=== PATIENT | male | born 1975 | race Two or more races ===

== ENCOUNTER 2016-12-13 01:38 | Emergency (ER) | payer MEDICARE, OTHER ==
[~2016-12-13] VITALS: Ht 160 cm; Wt 72.6 kg
[2016-12-13 01:49] VITALS: BP 128/60
[2016-12-13] MEDS ORDERED: methylPREDNISolone SOD SUCC 125 MG/2 ML VL IM ONE (02:45)
[2016-12-13] MEDS ORDERED: diphenhdrAMINE HCL 50 MG/1 ML VL IM ONE (02:45)
== END 2016-12-13 03:00 | disposition home or self-care (01) ==
LOC: EDBD 01:38 → ER 01:38
DX: T78.40XA Allergy, unspecified, initial encounter (principal); T50.905A Adverse effect of unspecified drugs, medicaments and biological substances, initial encounter; Y92.89 Other specified places as the place of occurrence of the external cause; M79.89 Other specified soft tissue disorders
CPT/HCPCS: 96372; 99284; J1200; J2930

== ENCOUNTER 2017-03-26 18:44 | Emergency (ER) | payer OTHER ==
[~2017-03-26] VITALS: Ht 167.6 cm; Wt 68.0 kg
[2017-03-26 19:41] LABS: Basophils # (auto) 0 uL; Basophils % (auto) 0.3 % (0.0-2.0); CONDITION Y; Eosinophils # (auto) 0 uL; Eosinophils % (auto) 0.3 % (0.0-7.0); Hemoglobin 17.3 g/dL (13.5-17.5); Lymphocytes # (auto) 1.4 uL; Lymphocytes % (auto) 11.9 % (10.0-50.0); Mean Corpuscular Hemoglobin 30.1 pg (28.0-32.0); Mean Corpuscular Hgb Conc. 33.8 g/dL (32.0-36.0); Monocytes # (auto) 0.6 uL; Monocytes % (auto) 5.2 % (0.0-12.0); Neutrophils # (auto) 9.7 uL; Neutrophils % (auto) 82.3 % (37.0-80.0); Platelet Count (auto) 434 10^3/uL (140-450); Red Cell Distribution Width 13.5 % (11.6-16.0); White Blood Cell 11.8 10^3/uL (4.4-10.8)
[2017-03-26 19:58] LABS: Albumin 4.3 g/dL (3.4-5.0); Anion Gap 9 (5-15); Aspartate Aminotransferase 18 U/L (15-37); BUN/Creatinine Ratio 12.9; Blood Urea Nitrogen 18 mg/dL (7-18); Calcium 9.2 mg/dL (8.5-10.1); Carbon Dioxide 23 mmol/L (21-32); Chloride 113 mmol/L (98-107); GFR African American 73 mL/min; GFR Non-African American 60 mL/min; Glucose 82 mg/dL (74-106); Potassium 3.8 mmol/L (3.5-5.1); Sodium 145 mmol/L (136-145)
[2017-03-26 20:02] LABS: Alkaline Phosphatase 98 U/L (45-117); Bilirubin, Total 0.7 mg/dL (0.2-1.0); Total Protein 7.9 g/dL (6.4-8.2)
[2017-03-26 23:56] VITALS: BP 125/51
[2017-03-27] MEDS ORDERED: diphenhdrAMINE HCL 25 MG CAP PO ONE (01:00)
== END 2017-03-27 01:12 | disposition home or self-care (01) ==
LOC: ER 18:55
DX: J20.9 Acute bronchitis, unspecified (principal); L29.9 Pruritus, unspecified
CPT/HCPCS: 36415; 71020; 80053; 80307; 84484; 85025

== ENCOUNTER 2023-02-27 11:36 | Emergency (ER) | payer OTHER ==
[~2023-02-27] VITALS: Ht 165.1 cm; Wt 66.0 kg
[2023-02-27] MEDS ORDERED: HYDROcodone-ACET 5/325MG TAB PO ONE (17:00)
[2023-02-27] MEDS ORDERED: IBU600T PO (17:10)
[2023-02-27] MEDS ORDERED: CYCL-839 PO (17:10)
[2023-02-27 17:15] VITALS: BP 126/70; PULSE 72; RESP 20; TEMP 98; O2SAT 98
== END 2023-02-27 17:58 | disposition home or self-care (01) ==
LOC: ER 11:36
DX: S13.8XXA Sprain of joints and ligaments of other parts of neck, initial encounter (principal); S43.492A Other sprain of left shoulder joint, initial encounter; S33.5XXA Sprain of ligaments of lumbar spine, initial encounter; S00.03XA Contusion of scalp, initial encounter; S00.83XA Contusion of other part of head, initial encounter; S09.8XXA Other specified injuries of head, initial encounter; F32.9 Major depressive disorder, single episode, unspecified; F20.9 Schizophrenia, unspecified; F15.90 Other stimulant use, unspecified, uncomplicated; V43.52XA Car driver injured in collision with other type car in traffic accident, initial encounter; Y93.I9 Activity, other involving external motion; Y92.89 Other specified places as the place of occurrence of the external cause; Y99.8 Other external cause status
CPT/HCPCS: 70450; 70486; 72100; 72125; 73030